=== PATIENT | female | born 1945 | race Asian ===

== ENCOUNTER 2021-08-04 08:09 | Emergency (ER) | payer OTHER ==
[~2021-08-04] VITALS: Ht 162.6 cm; Wt 54.4 kg
[2021-08-04 08:15] VITALS: BP_SYST 135
[2021-08-04] MEDS ORDERED: LORazepam 1 MG TABLET PO ONE (08:30)
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
--- NOTE | 2021-08-04 08:35 | NUR ---
STAFF FROM FLOOR TO BEDSIDE WITH DR BARNES FOR LANGUAGE TRANSLATION
--- NOTE | 2021-08-04 08:42 | NUR ---
DR BARNES IN TO ASSESS
--- NOTE | 2021-08-04 08:52 | NUR ---
OFF TO CT VIA GURNEY .
[2021-08-04] MEDS ORDERED: traMADol HCL HCL 50 MG TABLET (ULTRAM) PO ONE (09:45)
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
[2021-08-04] MEDS ORDERED: TRAM50TA PO (10:32)
[2021-08-04] MEDS ORDERED: NAPR-688 PO (10:32)
--- NOTE | 2021-08-04 11:13 | NUR ---
Patient given written and verbal discharge instructions and verbalizes understanding. ER MD discussed with patient the results and treatment provided. Patient in stable condition. ID arm band removed. Patient educated on pain management and to follow up with PMD. Pain Scale 2/10 Opportunity for questions provided and answered.
[2021-08-04 11:14] VITALS: BP_SYST 119
== END 2021-08-04 11:14 | disposition home or self-care (01) ==
LOC: SED 08:09
DX: S16.1XXA Strain of muscle, fascia and tendon at neck level, initial encounter (principal); R51.9 Headache, unspecified; Z79.899 Other long term (current) drug therapy; V49.49XA Driver injured in collision with other motor vehicles in traffic accident, initial encounter; Y93.89 Activity, other specified; Y92.89 Other specified places as the place of occurrence of the external cause; Y99.8 Other external cause status
CPT/HCPCS: 70450-TC; 71045; 72125-TC; 72170-TC; 73564; 76376; 93005; 99284